=== PATIENT | female | born 1995 | race Caucasian/White ===

== ENCOUNTER 2017-06-26 08:22 | Outpatient (RCR) | payer OTHER, SELFPAY | END 2017-07-08 23:59 | LOC: NS 08:22 | PROVIDERS: Family Provider Family Medicine; PCP Family Medicine; Visit Provider Family Medicine | DX: E66.3 Overweight (principal); Z68.29 Body mass index [BMI] 29.0-29.9, adult; Z71.3 Dietary counseling and surveillance | CPT/HCPCS: 97802 ==

== ENCOUNTER 2017-07-10 12:25 | Outpatient (RCR) | payer OTHER, SELFPAY | END 2017-08-08 23:59 | LOC: NS 12:25 | PROVIDERS: Family Provider Family Medicine; PCP Family Medicine; Visit Provider Family Medicine | DX: E66.3 Overweight (principal); Z68.22 Body mass index [BMI] 22.0-22.9, adult; Z71.3 Dietary counseling and surveillance | CPT/HCPCS: 97803 ==

== ENCOUNTER 2017-08-14 11:01 | Outpatient (RCR) | payer OTHER, SELFPAY | END 2017-09-07 23:59 | LOC: NS 11:01 | PROVIDERS: Family Provider Family Medicine; PCP Family Medicine; Visit Provider Family Medicine | DX: E66.3 Overweight (principal); Z68.22 Body mass index [BMI] 22.0-22.9, adult; Z71.3 Dietary counseling and surveillance | CPT/HCPCS: 97803 ==

== ENCOUNTER 2017-09-11 11:28 | Outpatient (RCR) | payer OTHER, SELFPAY | END 2017-10-02 23:59 | LOC: NS 11:28 | PROVIDERS: Family Provider Family Medicine; PCP Family Medicine; Visit Provider Family Medicine | DX: E66.3 Overweight (principal); Z68.22 Body mass index [BMI] 22.0-22.9, adult; Z71.3 Dietary counseling and surveillance | CPT/HCPCS: 97803 ==

== ENCOUNTER 2017-12-16 08:30 | Outpatient (RCR) | payer OTHER, SELFPAY ==
--- NOTE | 2017-11-17 11:41 | HP.SP.AD ---
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 Right Hearing Abillity: Normal Left Hearing Abillity: Normal Visual Assistive Devices: Glasses Patients Living Arrangements: With Family Patient Allergies - Allergies Allergies latex Allergy (Verified 12/30/16 23:05) Hives lorazepam [From Ativan] Allergy (Verified 12/30/16 23:05) Itching HALLUCINATE Sulfa (Sulfonamide Antibiotics) Allergy (Verified 12/30/16 23:05) Hives melatonin Adverse Reaction (Verified 12/30/16 23:05) Other HYPERACTIVITY Subjective Cog/Ling/Com - Subjective Cognitive/Linguistic/Communication: Patient reported that since her injury ( a heavy shelf fell from above her onto her head as she leaned over) Objective Cog/Ling/Com - Test Administered Jyshfnlsl-Jmmivurkia-Ceqcfifzthexr Assessment Administered: Yes Dfmaprixh-Bphokwylun-Nhdkjypvnfnnn Assessment: Cognitive Linguistic skills were evaluated using patient/family interview, skilled observation and informal evaluation through tasks completed by the patient. - Orientation Orientation: Person, Birthdate, Medical Diagnosis - Answer Yes/No Questions Complex: WNL - Conversational Tasks Conversational Tasks: WNL Comments: The patient reported that she will have words that she is unable to say and that she describes them to move further into converation. - Recall Comments: Saskia reported that she is forgetting daily tasks such as putting away objects and has no recall of putting it away. She also reported that while at work she was trained on how to do a new task then was unable to complete the task. 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 She has had to call back to confirm an appointment becuase she did not write the details into her calendar. - Cognitive Linguistic Supervision/Saftey Awareness of deficits: WNL Cognitive Linguistic Comments - Comments Environment Saskia reports being overwhelmed by loud music or too many people in the same area. She noted that she has difficulty sustaining attention to task when music is present. This is affecting her work as she has to restart tasks. Plan - Plan Plan: Speech therapy is warranted for cognitive deficits which are impacting her daily function including but not limited recalling medical appointments or nformation for medical appointments. - Recommendations Treatment Warranted: Yes - Frequency Frequency: 1x/Week Duration: 6 Weeks - Prognosis Prognosis: Good - Goals that are Established: Determination:: Goals will be added/modified as deemed necessary and appropriate. Therapy will be discontinued when results of re-evaluation indicate therapy is no longer needed or lack of progress has been documented. - Goal #1-5 Goal #1: Further assessment for recall deficits with goals added at that time. Goal #2: Executive function evaluation with goals added at that time. Education - Patient Instruction Patient Education: Diagnosis, Goals Person Taught: Patient Teaching Method: Discussion Response to teaching: Verbalize understanding
--- NOTE | 2018-03-30 12:57 | HP.SP.DC_ITS ---
ST Discharge Summary - Discharged: Discharge: Saskia Grimaldo is discharged from [facility] as of March 30, 2018 due to lack of further scheduled visits. She was evaluated on 11/17/17 and attended a total of 3 sessions focusing on completing cognitive testing. She took one month off for traveling and no further visits were completed. A copy of this discharge summary will be sent to her referring physician.
== END 2017-12-16 19:00 | disposition home or self-care (01) ==
LOC: SP 08:30
PROVIDERS: Family Provider Family Medicine; PCP Family Medicine; Visit Provider Nurse Practitioner Acute Care
DX: R41.3 Other amnesia (principal); R41.0 Disorientation, unspecified; S06.0X9D Concussion with loss of consciousness of unspecified duration, subsequent encounter
CPT/HCPCS: 92507; 92523

== ENCOUNTER → 2018-11-05 08:57 | Outpatient (CLI) | payer OTHER, SELFPAY ==
[2018-10-06 09:43] VITALS: BMI 26.9
--- NOTE | 2018-11-05 09:01 | BI_ITS ---
MAMMOGRAPHY - BILATERAL DIAGNOSTIC REASON FOR EXAM: Female, 23 years old. PERTINENT HISTORY: Non-contributory. TECHNIQUE: Digital examination. Mediolateral oblique (MLO) and craniocaudad (CC) views of both breasts were obtained. CAD: COMPARISON: August 14, 2016 FINDINGS: Breast Composition: Scattered fibroglandular tissue bilaterally There are no dominant masses or suspicious calcifications. Skin thickening or nipple retraction. There are benign looking lymph nodes seen in the left axilla. No other significant abnormalities are identified. BI/DIAG MAMM W/CAD, BILAT IMPRESSION: Stable bilateral diagnostic mammogram. ASSESSMENT CATEGORY: BIRADS-1 unchanged since the last study of August 14, 2016 FOLLOW UP RECOMMENDATION: Approximately 10% of breast cancers are not detected by mammography. A normal mammogram should not delay biopsy of a clinically suspicious abnormality. Electronically Signed: Екатерина Hester, at 15:25 EDT Tel , Service support ,
== END ==
PROVIDERS: Family Provider Family Medicine; PCP Family Medicine; Referring Provider Surgery; Visit Provider Surgery
DX: N63.10 Unspecified lump in the right breast, unspecified quadrant (principal); N63.20 Unspecified lump in the left breast, unspecified quadrant; N64.4 Mastodynia; N60.12 Diffuse cystic mastopathy of left breast; N60.11 Diffuse cystic mastopathy of right breast; G90.59 Complex regional pain syndrome I of other specified site; F40.298 Other specified phobia; Z86.14 Personal history of Methicillin resistant Staphylococcus aureus infection; Z80.3 Family history of malignant neoplasm of breast
CPT/HCPCS: 77062; 77066; G0279

== ENCOUNTER 2019-09-24 16:05 | Emergency (ER) | payer OTHER, MEDICAID, SELFPAY ==
[2018-10-06 09:43] VITALS: BMI 26.9
[2019-09-24 16:06] VITALS: BP 122/67; PULSE 76; RESP 17; TEMP 36.5; O2SAT 96; BMI 33.3
--- NOTE | 2019-09-24 16:38 | CT_ITS ---
STUDY: CT ABDOMEN AND PELVIS WITHOUT CONTRAST REASON FOR EXAM: Female, 23 years old. Right SIDE ABD PAIN X 3 DAYS RADIATION DOSAGE (If Supplied By Facility): CTDIvol = ( 9.98 ) mGy, DLP = ( 448.64 ) mGycm TECHNIQUE: Transaxial images were obtained from the dome of the diaphragm to the symphysis pubis without oral contrast, and without intravenous contrast. Sagittal and coronal images were reconstructed. Individualized dose optimization techniques were used for this CT. COMPARISON: 09/16/2010. FINDINGS: The visualized lung bases are unremarkable. The visualized portions of the heart are within normal limits. Normal liver. Normal gallbladder and extrahepatic biliary system. Normal spleen. Normal pancreas. Normal bilateral adrenal glands. There are obstructive changes of the right kidney. Evidence for edema. Mild hydronephrosis. Minimal hydroureter. Findings are related to a 4 mm distal right ureteral calculus just proximal to the UVJ and seen on axial image 134. Normal left kidney. Evaluation of the GI tract is limited by the absence of oral contrast. Normal visualized stomach. Normal small intestine. Normal colon. The appendix is visualized and appears normal. Normal abdominal aorta. Normal inferior vena cava. Normal retroperitoneum. Normal urinary bladder. Normal visualized uterus. Normal abdominal wall. Normal osseous structures. CT/Abdomen/Pelvis without Cont IMPRESSION: Obstructive changes of the right kidney, collecting system and ureter from a 4 mm distal right ureteral calculus. Electronically Signed: Da Valencia MD at 17:52 EDT , Service support ,
[2019-09-24] MEDS: Ondansetron 4 MG/2 ML Vial IV (17:03)
[2019-09-24] MEDS: Morphine 4 MG/ML Syringe IV (17:03)
[2019-09-24] MEDS: 0.9% Normal Saline 1,000 ML 1000 ML IV (17:03)
[2019-09-24 17:06] LABS: Bacteria 0 SEEN /hpf (None Seen); Mucous, Urine 0 SEEN /hpf (<or=2+); White Blood Cells 0 SEEN /hpf (0-5)
[2019-09-24 17:07] LABS: Absolute Lymphocyte Count 2.23 X10^3/uL (0.83-4.51); Absolute Neutrophil Count 7.2 X10^3/uL (2.0-7.7); Basophil# 0.02 X10^3/uL; Basophil% 0.2 % (0-1); Eosinophil# 0.08 X10^3/uL; Eosinophils% 0.8 % (0-5); Hematocrit 39.2 % (37-47); Hemoglobin 12.6 g/dL (12.0-15.0); Lymphocyte # 2.23 X10^3/ul (4.0); Lymphocyte % 21.4 % (19-41); Mean Corp Hgb Conc 32.1 g/dL (32-36); Mean Corpuscular Hgb 28.8 pg (27.0-32.0); Mean Corpuscular Volume 89.7 fL (81-99); Mean Platelet Vol. 11.5 fl (6.2-12.0); Monocyte# 0.86 X10^3/uL; Monocyte% 8.2 % (0-10); NRBC Flagged by Analyzer 0 % (0-5); Neutrophil # 7.22 X10^3/uL (2.7-7.7); Neutrophil % 69.1 % (47-70); Platelet Count 181 K/mm3 (150-450); RBC Distribution Width CV 12.1 % (11.6-14.6); Red Blood Count 4.37 M/mm3 (4.2-5.4); White Blood Count 10.4 K/mm3 (4.4-11.0)
[2019-09-24 17:08] LABS: Color, Urine Yellow (Yellow); Glucose, Dipstick Normal (Normal); Ketone-Dipstick 5 mg/dl (Negative); Leukocyte Esterase-Dipstick Negative /ul (Negative); Nitrite-Dipstick Negative (Negative); Occult Blood-Urine 10 /ul (Negative); Protein-Dipstick 15 mg/dl (Negative); Specific Gravity, Urine 1.025 (1.002-1.030); Urine Bilirubin Dipstick Negative (Negative); Urine Clarity Clear (Clear); Urine Urobilinogen Normal (Normal)
[2019-09-24 17:14] LABS: Internal QC Validated? YES +Cl - CLEAR BKGD; Pregnancy, Serum, hCG Quali. NEGATIVE Negative
[2019-09-24 17:16] LABS: Red Blood Cells-Urine 0-5 SEEN /hpf (0-5); Squamous Epithelial Cells - UA 0-5 SEEN /hpf (5-10)
[2019-09-24 17:21] LABS: AST(SGOT) 18 U/L (15-37); Alanine Aminotransfer ALT/SGPT 20 U/L (13-56); Alkaline Phosphatase 77 U/L (45-117); Anion Gap 7 (5-15); BUN 24 mg/dL (7-18); BUN/Creat Ratio 14.9 RATIO (10-20); Bilirubin, Direct 0.15 mg/dL (0.00-0.30); Calcium,Total 8.8 mg/dL (8.5-10.1); Chloride 110 mmol/L (98-107); Creatinine, Serum 1.61 mg/dL (0.55-1.02); EST Glomerular Filtration Rate 41 mL/min (>60); Est Glom Filt Rate - Afr Amer 50 mL/min (>60); Estimated Creatinine Clearance 58.94 ml/min; Globulin 3.2 g/dL (2.2-4.2); Glucose 89 mg/dL (74-106); Lipase 80 U/L (73-393); Potassium 3.6 mmol/L (3.5-5.1); Protein, Total 7.2 g/dL (6.4-8.2); Sodium Level 142 mmol/L (136-145)
--- NOTE | 2019-09-24 17:55 | ED.DCSUM_ITS ---
- ER Visit Summary Date of Service: 09/24/19 Chief Complaint: Flank and abdominal pain History of Present Illness: The patient is a [address] Clement. She reports that she has right flank and back pain that began 2 days ago. It was a sudden onset of pain she described as stabbing. Is 10 of 10 at worst an 8 out of 10 currently. Is worsened by movement relieved by remaining still. She is been nausea and vomit 6 times. No blood in her emesis. She also reports she said tips of the diarrhea. No blood in her stools or black tarry stools. She denies dysuria, but she feels the urge to urinate more frequently than usual. She denies hematuria. She is on Depakote and her last shot was a few days ago. Physical Examination: Vitals: Stable. Afebrile. General: Well-nourished and well-developed. Head: Normocephalic atraumatic. Neck: Supple, no lymphadenopathy. No JVD. Nontender. Cardiovascular: Regular rate and rhythm. No murmurs. Respiratory: No respiratory distress. Clear to auscultation bilaterally. Abdominal: Soft, mild right lower quadrant tenderness palpation, nondistended, normal bowel sounds. No guarding, rebound, or peritoneal signs. Back: Nontender. No CVA tenderness. Extremities: Nontender, no edema. Skin: Normal color, no rash. Neurologic: Alert and oriented ?3. Cranial nerves II through XII are intact. Normal strength and sensation. Psych: Normal affect. Test Results: CBC is normal. Chem-7 shows a chloride 110, BUN 24, creatinine 1.61. LFTs are normal. Lipase is normal. UA is normal. test is negative. Clinical Impression(s) from Imaging Studies Abdomen/Pelvis CT 09/24/19 16:38 IMPRESSION: Obstructive changes of the right kidney, collecting system and ureter from a 4 mm distal right ureteral calculus. Electronically Signed: Da Valencia MD at 17:52 EDT , Service support , Emergency Department Course and Treatment: Patient was given a liter normal saline. She was given morphine and Zofran IV. She is resting comfortably. Treatment Plan: Patient will be discharged on Percocet, Zofran, and naproxen. Instructed to follow-up with Dr. Caldera in 1 week if not improving. Return to the emergency department for any worsening symptoms. Disposition: To home in improved and stable condition. Impression: 1. Right ureterolithiasis. This note was generated with [employer] dictation software. It may contain incorrect words, spelling, and punctuation that were not noted in review of the chart prior to signing ED Disposition - Plan for ED Patient: Disposition: Home or Assisted Living Instructions: ED Renal Stone w Colic Prescriptions: Naproxen [Naprosyn] 500 mg PO BID #14 tab Prescription Printed Oxycodone HCl/Acetaminophen [Percocet 5/325] 1 tab PO Q6H PRN PRN 3 Days #12 tab PRN Reason: Pain Prescription Printed Ondansetron [Zofran Odt] 4 mg PO Q8H PRN PRN #10 tab PRN Reason: Nausea Prescription Printed Referrals: Marlo Caldera MD [STAFF PHYSICIAN] - 1 Week if not improving
[2019-09-24 18:38] VITALS: RESP 16
[2019-09-24 19:41] VITALS: PULSE 87; RESP 14; O2SAT 99
== END 2019-09-24 19:42 | disposition home or self-care (01) ==
LOC: ED 17:59
PROVIDERS: Emergency Provider Emergency Medicine; PCP Family Medicine
DX: N20.1 Calculus of ureter (principal); M79.7 Fibromyalgia
CPT/HCPCS: 74176; 80048; 80076; 81001; 83690; 84703; 85025; 96361; 96374; 96375; 99283; J7030; A4216; J2405

== ENCOUNTER 2019-09-30 14:04 | Day surgery (SDC) | payer OTHER, MEDICAID, SELFPAY ==
[2019-09-30 14:29] VITALS: BP 120/77; PULSE 71; RESP 18; TEMP 36.7; O2SAT 100; BMI 33.8
[2019-09-30 14:29] LABS: Internal QC Validated? YES +Cl - CLEAR BKGD; Pregnancy, Urine Negative Negative
--- NOTE | 2019-09-30 15:46 | PCM.HP.STD ---
History of Present Illness Date of Admission: 09/30/19 Chief Complaint: Right ureteral calculi, distal The patient is a 23 year old female with the 4 mm fragment in the distal right ureter has failed to pass it on her own we offered conservative measures to see she could pass a stone but she called back the office and wants to proceed with laser or basket extraction she understands the need a stent afterwards. 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) Unspecified open wound of left breast, sequela (Chronic) Unspecified open wound of right breast, sequela (Chronic) Breast mass, right (Chronic) Breast mass, left (Chronic) 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) History of MRSA infection (Chronic) Smoker (Chronic) Family history of breast cancer (Chronic) History of bilateral breast reduction surgery (Chronic) Chronic breast pain (Chronic) bilateral breasts Medical History: Medical History (Last Updated 05/21/18 @ 10:59 by Aisha Bishop) Acute recurrent tonsillitis, unspecified J03.91 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 Breast mass, left N63.20 PAINFUL MASS LEFT BREAST (INFERIOR TO NIPPLE) Diffuse cystic mastopathy N60.19 Frequent headaches R51 History of MRSA infection Z86.14 MRSA WOUND INFECTION OF HER BREAST History of chicken pox Z86.19 History of pneumonia Z87.01 AFTER THE BREAST REDUCTION IN 04/17 IBS (irritable bowel syndrome) K58.9 MTHFR (methylene THF reductase) deficiency and 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, E72.11 Mass of right breast N63.10 PAINFUL MASSES RIGHT BREAST (LATERAL AND MEDIAL PERIAREOLAR AREA) Moderate malnutrition E44.0 MODERATE MALNUTRITION UNSPECIFIED Sinus problem J34.9 Allergies latex Allergy (Verified 09/30/19 14:27) Hives lorazepam [From Ativan] Allergy (Verified 09/30/19 14:27) Itching HALLUCINATE Sulfa (Sulfonamide Antibiotics) Allergy (Verified 09/30/19 14:27) Hives Home Medications: Ambulatory Orders Medication Instructions Recorded clonazepam 1 mg tablet 1 mg PO TID 10/06/18 erenumab-aooe 70 mg/mL 140 mg SC QMONTH 10/06/18 subcutaneous auto-injector Naproxen [Naprosyn] 500 mg PO BID #14 tab 09/24/19 Ondansetron [Zofran Odt] 4 mg PO Q8H PRN PRN #10 tab 09/24/19 Oxycodone HCl/Acetaminophen 1 ea PO Q6H PRN PRN 09/29/19 [Oxycodone-Acetaminophen 5-325] Surgical History: Surgical History (Last Updated 05/21/18 @ 11:07 by Aisha Bishop) History of bilateral breast reduction surgery Z98.890 BILATERAL BREAST REDUCTION MAMMAPLASTY 04/17 History of excision of lesion Z98.890, Z87.2 EXCISION PAINFUL THICKENED SCAR CONTOUR DEFORMITY WOUND INFECTION BILATERAL BREAST WITH COMPLEX CLOSURE (44 CM) 07/25/10 History of excision of mass Z98.890 EXCISION PAINFUL MASS RIGHT LATERAL BREAST AND EXCISION PAINFUL MASS MEDIAL PERIAREOLAR AREA RIGHT BREAST 06/06/14 History of tonsillectomy Z90.89 Surgical History: no surgical history Smoking Status: Never smoker Tobacco Use: Non-smoker Review of Systems Constitutional: Denies: Chills, Fever, Weight Change HEENT: Denies: Head Aches, Sinus Congestion, Sinus Drainage Cardiovascular: Denies: Chest Pain, Palpitations Respiratory: Denies: Cough, Shortness of breath at rest, Sputum production Gastrointestinal: Denies: Abdominal Pain, Nausea, Vomiting Genitourinary: Denies: Dysuria Musculoskeletal: Denies: Joint Pain, Joint Tenderness Skin: Denies: Rash, Wounds Neurological: Denies: Numbness, Tingling, Focal weakness Psychiatric: Denies: Anxiety, Depression, Homicidal Ideations, Suicidal Ideations Hematologic/ Lymphatic: Denies: Easy Bruising, Easy Bleeding VTE Information - Inpt Only VTE Present on Admission: No VTE Mechan Device Prophylaxis: SCD's - Physical Exam Vitals/I&O's: Vital Signs Temp Pulse Resp BP Pulse Ox 98.1 F 71 18 120/77 100 09/30/19 14:29 09/30/19 14:29 09/30/19 14:29 09/30/19 14:29 09/30/19 14:29 Oxygen Delivery Method Room Air Weight: 70.9 kg Body Mass Index (BMI) 33.8 General: Alert, Oriented x3, Cooperative HEENT: Atraumatic, PERRLA, EOMI, Normocephalic Neck: Supple, No JVD, Negative Carotid Bruits Lungs: Clear to auscultation, Normal air movement Cardiovascular: Regular rate, No murmurs Abdomen: Bowel Sounds Present, Soft, Non Tender Extremities: No edema, Capillary Refill Less than 3 Seconds Skin: No rashes, No breakdown Musculoskeletal: No Tenderness to Palpation of Joints or Extremities Neurological: Cranial nerves II-XII grossly intact Psych/Mental Status: Normal Affect, Appropriate Microbiology Past 72 Hours 09/29/19 11:10 Mucosa - Nasopharyngeal Coronavirus COVID-19 PCR - Final Laboratory Results 09/30/19 14:21: Urine Test Negative Assessment/Plan Plan to proceed with right ureteroscopy basket extraction and stent placement for obstructing stone in the distal right ureter causing significant pain and discomfort.
[2019-09-30] MEDS: Cefazolin 2 GM in 0.9% Normal Saline 100 ML IV (15:48)
--- NOTE | 2019-09-30 15:49 | DCINST_ITS ---
Discharge Diet: Light diet - advance as tolerated Discharge Activity: Return to Normal Activity, May not drive while taking narcotic pain medications. Allergies/Adverse Reactions: Allergies latex Allergy (Verified 09/30/19 14:27) Hives lorazepam [From Ativan] Allergy (Verified 09/30/19 14:27) Itching HALLUCINATE Sulfa (Sulfonamide Antibiotics) Allergy (Verified 09/30/19 14:27) Hives Medications to take at Discharge clonazepam 1 mg tablet 1 mg PO TID 10/06/18 erenumab-aooe 70 mg/mL subcutaneous auto-injector 140 mg SC QMONTH 10/06/18 Naproxen [Naprosyn] 500 mg PO BID #14 tab 09/24/19 Ondansetron [Zofran Odt] 4 mg PO Q8H PRN PRN #10 tab 09/24/19 Oxycodone HCl/Acetaminophen [Oxycodone-Acetaminophen 5-325] 1 ea PO Q6H PRN PRN 09/29/19 Cephalexin [Keflex] 500 mg PO TID #9 cap 09/30/19 Ondansetron [Zofran Odt] 4 mg PO Q8H PRN PRN #6 tab 09/30/19 Oxycodone HCl/Acetaminophen [Percocet 5/325] 1 tab PO Q4H PRN PRN 5 Days #10 tab 09/30/19 The following prescriptions were given: Cephalexin [Keflex] 500 mg PO TID #9 cap Prescription Printed Oxycodone HCl/Acetaminophen [Percocet 5/325] 1 tab PO Q4H PRN PRN 5 Days #10 tab PRN Reason: Pain Prescription Printed Ondansetron [Zofran Odt] 4 mg PO Q8H PRN PRN #6 tab PRN Reason: Nausea Prescription Printed Primary Care Physician: Angelo Clement DO [Primary Care Provider] - Test Results: Test results from this visit will be discussed in further detail at your follow- up appointment, if applicable. Please Follow Up With: Marlo Caldera MD When: please call to make an appointment.
--- NOTE | 2019-09-30 16:15 | PCM.OPRPT ---
Report of Operation Date of Procedure: 09/30/19 Pre-Operative Diagnosis: Right colic and right ureteral calculi distal Post-Operative Diagnosis: Same Surgery/Procedure Performed:: Cystoscopy, balloon dilation of the right ureter, retrograde pyelogram, ureteroscopy,. Stent placement right side Description of Surgical Findings:: 23-year-old female presented to the office with severe right flank pain from a small 4 mm stone in the distal right ureter, at that point I advised continued observations is very likely she is going to pass a stone she went home and then called back and pain and desire to have intervention to relieve of pain. So we put on the schedule for right ureteroscopy and extraction of stone, I saw her in the preoperative area and she was still complaining of right flank pain and denied seeing the stone pass. 23-year-old female taken back to the operating room at the smooth induction of anesthesia she was placed supine on the table then in dorsolithotomy position, the urethrovaginal area prepped and draped in usual sterile fashion I went into the bladder with a 21 Nauruan rigid cystourethroscope, cannulated the right ureteral orifice initially I thought I could feel the wire hit something that could feel like the stone but on fluoroscopy could not see anything we then balloon dilated the distal ureter with a 12 Nauruan balloon dilator, and then left the wire in place and next a wire went in with a SlimLine rigid ureteroscope the distal ureter was somewhat tight but is able to get through without any problems and then I got into the distal ureter and no stone was seen there was a small mucosal flap that had developed when the wires put in I corrected the course of this but pulled the wire out and then went over the flap and then put the wire up over the flap of mucosa. I then performed a retrograde pyelogram there is no extravasation of contrast so was not a injury to the ureter just a small mucosal flap. Once that was identified expected ureter again no stone was seen she must the past it. I have reviewed the retrograde pyelogram again could see contrast going up all the way to the kidney and then I put a stent over the wire the stent coiled in the kidney and bladder good position but the string on it for extraction and will see her next week next for removal in the office. Type of Anesthesia:: General Drains: stent right side - Admit VTE Documentation VTE Present on Admission: No VTE Mechan Device Prophylaxis: SCD's
[2019-09-30 16:23] VITALS: BP 102/63; BP 120/77; PULSE 62; RESP 16; TEMP 36.7; O2SAT 96
[2019-09-30 16:30] VITALS: BP 107/71; BP 120/77; PULSE 79; RESP 16; O2SAT 96
[2019-09-30 16:45] VITALS: BP 117/80; BP 120/77; PULSE 77; RESP 16; TEMP 36.9; O2SAT 98
[2019-09-30 17:01] VITALS: BP 120/77
== END 2019-09-30 17:18 | disposition home or self-care (01) ==
LOC: SDC 14:06 → AC 14:06
PROVIDERS: Anesthesiology; PCP Family Medicine; Referring Provider Urology; Visit Provider Urology
PROC: 0TJ98ZZ Inspection of Ureter, Via Natural or Artificial Opening Endoscopic (ICD-10-PCS; CPT 52352; principal; 2019-09-30 15:55)
DX: N20.1 Calculus of ureter (principal); Z79.1 Long term (current) use of non-steroidal anti-inflammatories (NSAID); Z80.3 Family history of malignant neoplasm of breast; Z86.14 Personal history of Methicillin resistant Staphylococcus aureus infection; Z87.891 Personal history of nicotine dependence; Z88.2 Allergy status to sulfonamides; Z91.040 Latex allergy status; Z87.440 Personal history of urinary (tract) infections; F43.12 Post-traumatic stress disorder, chronic; M79.7 Fibromyalgia; E72.12 Methylenetetrahydrofolate reductase deficiency; Z11.59 Encounter for screening for other viral diseases
CPT/HCPCS: 52332; 52344; 76000; 81025; 87635; G2023; J7120; C1769; C2617; J2405; U0004

== ENCOUNTER → 2019-11-21 16:01 | Outpatient (CLI) | payer MEDICAID, SELFPAY ==
--- NOTE | 2019-11-21 16:06 | RAD_ITS ---
STUDY: X-RAY - ABDOMEN/PELVIS REASON FOR EXAM: Female, 24 years old. RIGHT SIDE KIDNEY STONE CHECK UP, PT WENT IN FOR SURGERY, AND DR COULD NOT FIND STONE TECHNIQUE: Single AP view of the abdomen / pelvis. COMPARISON: CT scan of 09/24/2019. FINDINGS: Normal visualized lung bases. Currently, no definite renal or ureteral stones are seen. There is an unremarkable bowel gas pattern. There is no demonstrated free abdominal air. The visualized liver, spleen and kidneys are grossly normal in size and morphology. Normal soft tissue structures. Normal visualized osseous structures. RAD/Abdomen Single View IMPRESSION: Normal x-ray examination of the abdomen and pelvis. No definite renal or ureteral stones. Electronically Signed: Da Valencia MD at 17:15 EDT , Service support ,
== END ==
PROVIDERS: PCP Family Medicine; Referring Provider Urology; Visit Provider Urology
DX: N20.0 Calculus of kidney (principal)
CPT/HCPCS: 74018

== ENCOUNTER 2019-12-20 15:43 | Outpatient (RCR) | payer MEDICAID, SELFPAY | END 2020-01-09 23:59 | LOC: NS 15:43 | PROVIDERS: PCP Family Medicine; Visit Provider Family Medicine | DX: Z71.3 Dietary counseling and surveillance (principal); E66.9 Obesity, unspecified; Z68.32 Body mass index [BMI] 32.0-32.9, adult | CPT/HCPCS: 97802 ==

== ENCOUNTER → 2020-01-26 14:31 | Outpatient (CLI) | payer MEDICAID, SELFPAY ==
--- NOTE | 2020-01-26 14:34 | CT_ITS ---
STUDY: CT ABDOMEN AND PELVIS WITHOUT CONTRAST REASON FOR EXAM: Female, 24 years old. BILAT FLANK PAIN X 1 MONTH, HX RT SIDE [place] RADIATION DOSAGE (If Supplied By Facility): CTDIvol = ( 12.44 ) mGy, DLP = ( 541.79 ) mGycm TECHNIQUE: Transaxial images were obtained from the dome of the diaphragm to the symphysis pubis without oral contrast, and without intravenous contrast. Sagittal and coronal images were reconstructed. Individualized dose optimization techniques were used for this CT. COMPARISON: Comparison is made with prior examination dated 09/24/2019. FINDINGS: The visualized lung bases are unremarkable. The visualized portions of the heart are within normal limits. Normal liver. Normal gallbladder and extrahepatic biliary system. Normal spleen. Normal pancreas. Normal bilateral adrenal glands. Findings suggestive of a medullary sponge kidneys. No obstructive uropathy is seen at this time. The previously seen calculus at the right uterovesical junction is not seen at this time. Normal visualized stomach. Normal small intestine. Normal colon. The appendix is visualized and appears normal. Normal abdominal aorta. Normal inferior vena cava. Normal retroperitoneum. Normal urinary bladder. Small follicles are seen in both ovaries. Normal abdominal wall. Normal osseous structures. CT/Abdomen/Pelvis without Cont IMPRESSION: Findings suggestive of medullary sponge kidneys. Electronically Signed: Prasad Daly, at 14:59 EDT , Service support ,
== END ==
PROVIDERS: PCP Family Medicine; Referring Provider Urology; Visit Provider Urology
DX: R10.9 Unspecified abdominal pain (principal); N20.0 Calculus of kidney
CPT/HCPCS: 74176

== ENCOUNTER 2020-02-27 16:52 | Outpatient (RCR) | payer MEDICAID, SELFPAY | END 2020-02-27 23:59 | disposition home or self-care (01) | LOC: NS 16:52 | PROVIDERS: PCP Family Medicine; Visit Provider Family Medicine | DX: Z71.3 Dietary counseling and surveillance (principal); E66.9 Obesity, unspecified; Z68.32 Body mass index [BMI] 32.0-32.9, adult | CPT/HCPCS: 97803 ==

== ENCOUNTER → 2020-04-25 08:59 | Outpatient (CLI) | payer MEDICAID, SELFPAY ==
[2020-03-14 08:41] VITALS: BMI 32.6
[2020-04-25 12:45] LABS: Absolute Lymphocyte Count 2.34 X10^3/uL (0.83-4.51); Absolute Neutrophil Count 6.7 X10^3/uL (2.0-7.7); Basophil# 0.04 X10^3/uL; Basophil% 0.4 % (0-1); Hemoglobin 13.7 g/dL (12.0-15.0); Lymphocyte # 2.34 X10^3/ul (4.0); Lymphocyte % 23.5 % (19-41); Mean Corp Hgb Conc 31.9 g/dL (32-36); Mean Corpuscular Hgb 28.8 pg (27.0-32.0); Mean Corpuscular Volume 90.3 fL (81-99); Mean Platelet Vol. 12.3 fl (6.2-12.0); Monocyte# 0.71 X10^3/uL; Monocyte% 7.1 % (0-10); NRBC Flagged by Analyzer 0 % (0-5); Neutrophil # 6.73 X10^3/uL (2.7-7.7); Neutrophil % 67.6 % (47-70); Platelet Count 221 K/mm3 (150-450); RBC Distribution Width CV 12.3 % (11.6-14.6); RBC Distribution Width SD 40.7 fl (35.1-43.9); Red Blood Count 4.76 M/mm3 (4.2-5.4)
[2020-04-25 12:55] LABS: D-Dimer Quantitative (DVT/PE) <= 0.27 FEU/ug/m (0.27-0.49)
[2020-04-25 13:20] LABS: ALB/GLOB Ratio 1.2 RATIO (0.9-2.4); AST(SGOT) 14 U/L (15-37); Alanine Aminotransfer ALT/SGPT 24 U/L (13-56); Albumin, Serum 3.9 g/dL (3.2-5.0); Alkaline Phosphatase 86 U/L (45-117); Anion Gap 8 (5-15); BUN 13 mg/dL (7-18); BUN/Creat Ratio 15.7 RATIO (10-20); Calcium,Total 8.8 mg/dL (8.5-10.1); Chloride 110 mmol/L (98-107); Creatinine, Serum 0.83 mg/dL (0.55-1.02); EST Glomerular Filtration Rate 88 mL/min (>60); Est Glom Filt Rate - Afr Amer 107 mL/min (>60); Globulin 3.3 g/dL (2.2-4.2); Glucose 89 mg/dL (74-106); Potassium 3.6 mmol/L (3.5-5.1); Protein, Total 7.2 g/dL (6.4-8.2); Sodium Level 142 mmol/L (136-145); Thyroid Stim Hormone (TSH) 1.01 uIU/mL (0.358-3.74)
== END ==
PROVIDERS: PCP Family Medicine; Visit Provider Family Medicine
DX: R06.00 Dyspnea, unspecified (principal); R60.9 Edema, unspecified
CPT/HCPCS: 36415; 80053; 84443; 85025; 85379

== ENCOUNTER → 2020-05-30 12:48 | Outpatient (CLI) | payer MEDICAID, SELFPAY ==
[2020-05-30 08:46] VITALS: BMI 32.4
== END ==
PROVIDERS: PCP Family Medicine; Referring Provider Obstetrics & Gynecology; Visit Provider Obstetrics & Gynecology
DX: R10.2 Pelvic and perineal pain (principal)
CPT/HCPCS: 87070; 87205

== ENCOUNTER → 2020-08-03 15:53 | Outpatient (CLI) | payer MEDICAID, SELFPAY ==
[2020-05-30 08:46] VITALS: BMI 32.4
--- NOTE | 2020-08-03 16:12 | CT_ITS ---
INDICATION: KIDNEY STONES EXAMINATION: CT Abdomen And Pelvis W/O Contrast Injection TECHNIQUE: Helically acquired images were obtained of the abdomen and pelvis without the use of IV contrast. A radiation dose optimization technique was used for this scan. Oral contrast: None. COMPARISON: 01/26/2020 FINDINGS: Evaluation of the solid organs and vascular structures is limited without intravenous contrast. Visualized lung bases: Unremarkable Liver: Unremarkable Gallbladder: Unremarkable Spleen: Unremarkable Pancreas: Unremarkable Adrenal Glands: Unremarkable Kidneys: Hyperdense renal pyramids bilaterally, non-specific. Tiny 1 mm nonobstructing stone in the left mid pole (image 69, series 601). GI Tract: Unremarkable Vasculature: Unremarkable Lymphadenopathy: None Peritoneum: No ascites. Bladder: Unremarkable Reproductive organs: IUD in place. Bones/Soft tissues: No suspicious osseous or soft tissue lesions CT/Abdomen/Pelvis without Cont IMPRESSION: Tiny 1 mm non-obstructing renal stone in the left mid pole. No hydronephrosis or ureteral stones. Non-specific bilateral hyperdense renal pyramids. Electronically Signed: Brock Prince MD at 16:56 EDT Tel , Service support ,
== END ==
PROVIDERS: PCP Family Medicine; Referring Provider Urology; Visit Provider Urology
DX: N20.0 Calculus of kidney (principal); M54.9 Dorsalgia, unspecified; R11.2 Nausea with vomiting, unspecified
CPT/HCPCS: 74176

== ENCOUNTER → 2020-11-29 12:39 | Outpatient (CLI) | payer MEDICAID, SELFPAY ==
[2020-11-29 11:09] VITALS: BMI 31.3
[2020-12-01 03:07] LABS: Chlamydia By Nucleic Acid AMP Negative (Negative)
[2020-12-01 08:33] LABS: Gonococcus By Nucleic Acid AMP Negative (Negative)
== END ==
PROVIDERS: PCP Family Medicine; Referring Provider Obstetrics & Gynecology; Visit Provider Obstetrics & Gynecology
DX: R10.2 Pelvic and perineal pain (principal); G89.29 Other chronic pain
CPT/HCPCS: 87070; 87205; 87491; 87591

== ENCOUNTER → 2020-12-04 12:20 | Outpatient (CLI) | payer MEDICAID, SELFPAY ==
[2020-11-29 11:09] VITALS: BMI 31.3
--- NOTE | 2020-12-04 12:27 | US_ITS ---
STUDY: ULTRASOUND OF THE FEMALE PELVIS - COMPLETE REASON FOR EXAM: Female, 25 years old. Pain with menstruation. Possible endometriosis. LMP: 11/20/2020. TECHNIQUE: Transabdominal and Transvaginal TECHNICAL QUALITY: Adequate. COMPARISON: None. FINDINGS: The uterus is anteverted and is in a midline position. The uterus measures 8.3 cm x 5 cm x 3.8 cm. Normal uterine cervix. The endometrium measures 9 mm in thickness, and is hyperechoic. There is no demonstrated endometrial mass. There is no demonstrated myometrial mass. I.U.D. - The patient does not have an I.U.D. The right ovary is visualized. The right ovary measures 2.8 cm x 2.6 cm x 2.6 cm. There is no right ovarian cyst or ovarian mass. There is no visualized right adnexal mass or complex lesion. There is normal arterial and normal venous vascularity. The left ovary is visualized. The left ovary measures 2.7 cm x 2.3 cm x 1.5 cm. There is no left ovarian cyst or ovarian mass. There is no visualized left adnexal mass or complex lesion. There is normal arterial and normal venous vascularity. There is minimal fluid in the cul-de-sac. The pre void volume of the bladder was 122 ml. US/Transvaginal Non- IMPRESSION: Minimal amount of free fluid in the cul-de-sac, otherwise normal examination. Electronically Signed: Prasad Daly MD at 15:34 EDT , Service support ,
--- NOTE | 2020-12-04 12:27 | US_ITS ---
STUDY: ULTRASOUND OF THE FEMALE PELVIS - COMPLETE REASON FOR EXAM: Female, 25 years old. Pain with menstruation. Possible endometriosis. LMP: 11/20/2020. TECHNIQUE: Transabdominal and Transvaginal TECHNICAL QUALITY: Adequate. COMPARISON: None. FINDINGS: The uterus is anteverted and is in a midline position. The uterus measures 8.3 cm x 5 cm x 3.8 cm. Normal uterine cervix. The endometrium measures 9 mm in thickness, and is hyperechoic. There is no demonstrated endometrial mass. There is no demonstrated myometrial mass. I.U.D. - The patient does not have an I.U.D. The right ovary is visualized. The right ovary measures 2.8 cm x 2.6 cm x 2.6 cm. There is no right ovarian cyst or ovarian mass. There is no visualized right adnexal mass or complex lesion. There is normal arterial and normal venous vascularity. The left ovary is visualized. The left ovary measures 2.7 cm x 2.3 cm x 1.5 cm. There is no left ovarian cyst or ovarian mass. There is no visualized left adnexal mass or complex lesion. There is normal arterial and normal venous vascularity. There is minimal fluid in the cul-de-sac. The pre void volume of the bladder was 122 ml. US/Pelvic (Non ) IMPRESSION: Minimal amount of free fluid in the cul-de-sac, otherwise normal examination. Electronically Signed: Prasad Daly MD at 15:34 EDT , Service support ,
== END ==
PROVIDERS: PCP Family Medicine; Referring Provider Obstetrics & Gynecology; Visit Provider Obstetrics & Gynecology
DX: R10.2 Pelvic and perineal pain (principal)
CPT/HCPCS: 76830; 76856

== ENCOUNTER → 2020-12-17 12:51 | Outpatient (CLI) | payer MEDICAID, SELFPAY ==
[2020-11-29 11:09] VITALS: BMI 31.3
[2020-12-17 09:42] LABS: Hematocrit 44.9 % (37-47); Hemoglobin 14.5 g/dL (12.0-15.0); Mean Corp Hgb Conc 32.3 g/dL (32-36); Mean Corpuscular Volume 89.8 fL (81-99); Mean Platelet Vol. 11.3 fl (6.2-12.0); Platelet Count 226 K/mm3 (150-450); RBC Distribution Width CV 12.4 % (11.6-14.6); RBC Distribution Width SD 40.7 fl (35.1-43.9); White Blood Count 8.1 K/mm3 (4.4-11.0)
[2020-12-17 09:55] LABS: Prothrombin Time (Protime)PT. 12.5 SECONDS (11.7-14.9)
[2020-12-17 09:56] LABS: Partial Thromboplast Time 26.6 Seconds (24.1-36.2)
[2020-12-17 10:10] LABS: AST(SGOT) 21 U/L (15-37); Alanine Aminotransfer ALT/SGPT 21 U/L (13-56); Alkaline Phosphatase 87 U/L (45-117); Bilirubin, Direct 0.12 mg/dL (0.00-0.30); Globulin 3.6 g/dL (2.2-4.2); Protein, Total 7.6 g/dL (6.4-8.2)
== END ==
PROVIDERS: Anesthesiology; PCP Family Medicine; Referring Provider Obstetrics & Gynecology; Visit Provider Obstetrics & Gynecology
DX: Z01.818 Encounter for other preprocedural examination (principal); Z20.828 Contact with and (suspected) exposure to other viral communicable diseases
CPT/HCPCS: 36415; 80076; 85027; 85610; 85730; 86850; 86900; 86901; 87426; C9803

== ENCOUNTER 2021-01-22 08:49 | Day surgery (SDC) | payer MEDICAID, SELFPAY ==
[2021-01-18 13:35] LABS: Hematocrit 42.8 % (37-47); Hemoglobin 13.8 g/dL (12.0-15.0); Mean Corp Hgb Conc 32.2 g/dL (32-36); Mean Corpuscular Hgb 28.9 pg (27.0-32.0); Mean Corpuscular Volume 89.5 fL (81-99); Mean Platelet Vol. 11.5 fl (6.2-12.0); Platelet Count 227 K/mm3 (150-450); RBC Distribution Width CV 11.9 % (11.6-14.6); RBC Distribution Width SD 38.9 fl (35.1-43.9); Red Blood Count 4.78 M/mm3 (4.2-5.4); White Blood Count 10.7 K/mm3 (4.4-11.0)
[2021-01-22] VITALS (8 sets, daily range): BP systolic 93–122; BP diastolic 45–76; PULSE 55–84; RESP 16; TEMP 36.2–36.8; O2SAT 93–100; BMI 32.3
[2021-01-22 09:29] LABS: Internal QC Validated? YES +Cl - CLEAR BKGD; Pregnancy, Urine Negative Negative
[2021-01-22] MEDS: Lactated Ringers 1,000 ML 100 ML IV ×2 (10:06→12:46)
--- NOTE | 2021-01-22 11:05 | HP.PCM.OB_ITS ---
HPI - General HPI Narrative WILFREDO VELEZ, is a 25 F who presents for diagnostic laparoscopy, possible fulguration of endometriosis PFSH PFS Medical History (Updated 01/17/21 @ 09:08 by Eladia Byers) Acute recurrent tonsillitis, unspecified Alcohol use Anemia Anxiety Bilateral macrostomia Borderline personality disorder Breast mass, left Closed TBI (traumatic brain injury) Depression Diffuse cystic mastopathy Easy bruising Frequent headaches Gastric reflux History of chicken pox History of MRSA infection History of pneumonia History of steroid therapy IBS (irritable bowel syndrome) Injury of back Injury of head and neck Kidney stones Marijuana use Mass of right breast Migraine headache Moderate malnutrition MTHFR (methylene THF reductase) deficiency and homocystinuria Restless legs Sinus problem Wears glasses Home Medications multivitamin 1 tab PO DAILY 03/07/20 [History Last Taken Unknown] Allergy/AdvReac Type Severity Reaction Status Date / Time latex Allergy Hives/throat Verified 01/22/21 09:29 swelling lorazepam [From Ativan] Allergy Itching/thong Verified 01/22/21 09:29 lucinations Sulfa (Sulfonamide Allergy Hives/breathing Verified 01/22/21 09:29 Antibiotics) difficulty Family History Mother Anemia History of blood clots History of blood transfusion Hormone disorder Arthritis Father Asthma Aunt Breast cancer Cervical cancer Ovarian cancer Grandfather Bleeding disorder History of angina Melanoma Diabetes Heart disease Hypertension High cholesterol CVA (cerebral vascular accident) Cancer Grandmother Arthritis Diabetes Osteoporosis Thyroid disorder Surgical History History of bilateral breast reduction surgery History of excision of lesion History of excision of mass History of tonsillectomy s/p kidney stones Social History Smoking Status: Current every day smoker tobacco type: e-cigarettes alcohol intake: never substance use type: does not use caffeine: Yes what type of physical activity do you participate in: aerobics and weight training frequency: 5-6 times per week seatbelt use: always do you feel safe at home: Yes additional social history: Single-Works for [employer] ROS Eyes Eyes: Reports systems reviewed and no addt'l complaints, except as documented ENT HEENT: Reports systems reviewed and no addt'l complaints, except as documented Cardiovascular Cardiovascular: Reports systems reviewed and no addt'l complaints, except as documented Respiratory/Chest Respiratory/Chest: Reports systems reviewed and no addt'l complaints, except as documented Gastrointestinal Gastrointestinal: Reports systems reviewed and no addt'l complaints, except as documented Genitourinary Genitourinary: Reports systems reviewed and no addt'l complaints, except as documented Musculoskeletal Musculoskeletal: Reports systems reviewed and no addt'l complaints, except as documented Integumentary Integumentary: Reports systems reviewed and no addt'l complaints, except as documented Neurologic Neurologic: Reports systems reviewed and no addt'l complaints, except as documented Psychiatric Psychiatric: Reports systems reviewed and no addt'l complaints, except as documented Endocrine Endocrinology: Reports systems reviewed and no addt'l complaints, except as documented Hematologic/Lymphatic Hematologic/Lymphatic: Reports systems reviewed and no addt'l complaints, except as documented Allergic/Immunologic Allergic/Immunologic: Reports systems reviewed and no addt'l complaints, except as documented Vital Signs Vital Signs Vital Signs: 01/22/21 09:30 01/22/21 09:35 Temperature 98.1 F Temperature Source Temporal Pulse Rate 68 Respiratory Rate 16 Respiratory Pattern Normal Blood Pressure 106/45 L Blood Pressure Mean 65 Blood Pressure Source Monitor Blood Pressure Position Semi-Fowlers Blood Pressure Location Left Arm Pulse Ox 100 Oxygen Delivery Method Room Air Weight Weight: 154 lb 15.759 oz Body Mass Index (BMI) 32.3 Physical Exam Const alert, oriented x3, no apparent distress, average body habitus, healthy appearing and well nourished HEENT normocephalic and moist oral mucous membranes Head and Scalp: atraumatic Eyes PERRL and EOMs intact bilaterally Neck full ROM Resp normal respiratory effort, no retractions and no use of accessory muscles Cardio regular rate and regular rhythm GI soft to palpation, non-tender and non-distended Extremity normal to inspection and full ROM Skin no rashes or lesions noted Neuro no focal motor deficits and no sensory deficits noted Psych mental status grossly normal, affect normal, speech normal and activity/motor behavior normal Labs Labs Labs: Blood Type A POSITIVE Antibody Screen NEGATIVE Hct 42.8 % (37-47) Hgb 13.8 g/dL (12.0-15.0) Neisseria gonorrhoeae DNA (DIVYA) Negative (Negative) C.trachomatis DNA (PCR) Negative (Negative) Assessment & Plan (1) Chronic pelvic pain in female: PLAN: Patient with severe pelvic pain worse with menses not alleviated with IUD, depo, or scheduled NSAIDS Presents for diagnostic laparoscopy, possible fulguration of endometriosis Again reviewed risks of surgery. All questions answered No changes to medical history ROS negative Consent signed in office
--- NOTE | 2021-01-22 11:14 | PCM.DC ---
Discharge Instructions Diet Discharge Diet: No restrictions Activity Discharge Activity: May Not Drive (While on narcotic pain medication) and May Shower May resume sexual activity in: 1-2 weeks Lifting Restrictions: No lifting greater than 20 pounds until postop visit Dressing / Incision Call your doctor if your incision/area has: Continuous Slow Oozing, Sudden Increased Bleeding, Increased Pain/ Swelling, Increased Redness, Foul Smelling Discharge and Swelling at the incision site Call your doctor if you observe: Fever of 101 or Higher, Inability to urinate, Using more than 1 pad per hour, Shortness of breath, Dizziness, Fainting spells, Chest pain and Uncontrolled pain Remove Dressing in: 1 week Cleanse incision/area with: Soap & Water Follow Up Care Please Follow Up With: Nicole Montalvo MD When: 2 weeks Test Results: Test results from this visit will be discussed in further detail at your follow-up appointment, if applicable. Discharge Plan Admission Primary Reason for Your Visit: Laparoscopy Attending Provider: Nicole Montalvo Primary Care Provider: Angelo Clement Instructions Patient Instructions: Endometriosis Lap Tx Dc Discharge Orders/Prescriptions Prescriptions: New ibuprofen 800 mg tablet 800 mg PO Q8H PRN (Reason: pain) Qty: 30 RF: 1 oxycodone 5 mg capsule 5 mg PO Q6H PRN (Reason: pain) 5 Days Qty: 10 RF: 0 Continued multivitamin Tablet 1 tab PO DAILY RF: 0 Referrals / Follow Up: Angelo Clement DO [Primary Care Provider] - Disposition Disposition (needs filled in before D/C Order can be placed): Home, Self Care
--- NOTE | 2021-01-22 11:17 | PCM.OPRPT ---
Problems Associated Problem List Diagnoses (1) Chronic pelvic pain in female: Report of Operation Date of Procedure: 01/22/21 Pre-Operative Diagnosis: Chronic pelvic pain, suspected endometriosis Post-Operative Diagnosis: Same Surgery/Procedure Performed:: Diagnostic laparoscopy, fulguration of endometriosis Description of Surgical Findings:: Small implants of endometriosis noted anterior to the bladder, inferior to the uterosacral ligaments in the posterior cul-de-sac, and in the left ovarian fossa. 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 She was prepped and draped in the dorsal lithotomy position with yellofin stirrups. A weighted speculum was placed in the posterior aspect of the vagina and the anterior lip of the cervix was grasped with a single-tooth tenaculum. The uterus was sounded and found to be 9 cm. A Zumi uterine manipulator was placed without difficulty and all other instruments were removed from the vagina. Gloves were changed and attention was directed to the abdomen. The umbilicus was grasped with towel clamps. 10cc of 0.25% marcaine was used to anesthetize the umbilicus. A 5mm incision was made at the base of the umbilicus. A veress needle was inserted without difficulty and intra-abdominal placement was confirmed using the water-drop test. The abdomen was insufflated to 15 mmHg and the veress needle was removed. A 5mm optiview trochar was then placed under direct visualization. Initial survey of the abdominal cavity revealed no evidence of trauma. The above findings were noted. Additional 5mm ports were placed in the right and left lower quadrants. A [place] grasper attached to monopolar energy was used to fulgurate all noted areas of endometriosis. The procedure was deemed complete. All instruments were removed from the abdominal cavity. The port sites were closed in a simple interrupted fashion using 3-0 monocryl and sterile dressings were placed. The uterine manipulator was removed. The patient was awakened from anesthesia and taken to the recovery room in stable condition. Complications None apparent Admit VTE Documentation VTE Present on Admission: No VTE Mechan Device Prophylaxis: SCD's VTE Pharm Prophylaxis ordered?: No Procedures Urinary/Genital [id number]: [id number] Laproscopic ablation endometriosis
[2021-01-22] MEDS: Bupivacaine 0.25% 30 ML Vial (12:41)
== END 2021-01-22 15:44 ==
LOC: SDC 08:50 → AC 08:51
PROVIDERS: Anesthesiology; PCP Family Medicine; Visit Provider Obstetrics & Gynecology
PROC: (CPT 49320; principal; 2021-01-22 10:00)
DX: R10.2 Pelvic and perineal pain (principal); G89.29 Other chronic pain; N80.1 Endometriosis of ovary; N80.0 Endometriosis of uterus; N80.8 Other endometriosis; D64.9 Anemia, unspecified; F12.90 Cannabis use, unspecified, uncomplicated; F32.9 Major depressive disorder, single episode, unspecified; F41.9 Anxiety disorder, unspecified; F60.3 Borderline personality disorder; G25.81 Restless legs syndrome; K21.9 Gastro-esophageal reflux disease without esophagitis; K58.9 Irritable bowel syndrome, unspecified; Z86.14 Personal history of Methicillin resistant Staphylococcus aureus infection; Z79.899 Other long term (current) drug therapy
CPT/HCPCS: 00840; 58662; 36415; 81025; 85027; 86850; 86900; 86901; 87426; C9803; J7120; J2405

== ENCOUNTER 2021-01-29 18:35 | Emergency (ER) | payer MEDICAID, SELFPAY ==
[2021-01-29 18:37] VITALS: BP 127/81; PULSE 80; RESP 16; TEMP 36.8; O2SAT 98; BMI 34.0
--- NOTE | 2021-01-29 21:29 | RAD_ITS ---
EXAM: XR CHEST, 2 VIEWS : 1995 CLINICAL INDICATION: Cough TECHNIQUE: Frontal and lateral views of the chest. This report was created using [employer] report generation technology. COMPARISON: None. FINDINGS: LUNGS AND PLEURAL SPACES: Unremarkable. No consolidation or edema. No pneumothorax. No effusion. HEART: Unremarkable. Cardiac silhouette not enlarged. MEDIASTINUM: Central airways and mediastinal contour are unremarkable. BONES/JOINTS: Unremarkable. SOFT TISSUES: Unremarkable. RAD/Chest PA and Lateral IMPRESSION: No radiographic evidence of acute cardiopulmonary disease. at 2242 Reported and signed by: Erasmo Garces MD Electronically Signed: Erasmo Garces MD at 22:41 EDT Tel , Service support ,
--- NOTE | 2021-01-29 21:30 | CT_ITS ---
EXAM: CT ABDOMEN AND PELVIS WITH INTRAVENOUS CONTRAST : 1995 CLINICAL INDICATION: Post op abd pain/fever TECHNIQUE: Helically acquired images were obtained of the abdomen and pelvis with intravenous contrast. This CT exam was performed using one or more of the following dose reduction techniques: automated exposure control, adjustment of the mA and/or kV according to patient size, and/or use of iterative reconstruction technique. This report was created using [employer] report generation technology. CONTRAST: IV 100mL Isovue-370 COMPARISON: 08/03/2020 FINDINGS: LOWER THORAX: Unremarkable. Lung bases are clear. No cardiomegaly. No significant pericardial effusion. ABDOMEN: LIVER: Unremarkable. Homogeneous. No focal mass. GALLBLADDER AND BILE DUCTS: Unremarkable. No calcified gallstones. No gallbladder distention or wall edema. No intra- or extrahepatic biliary ductal dilation. PANCREAS: Unremarkable. No focal cystic or solid mass. SPLEEN: Unremarkable. Normal size without focal cystic or solid mass. ADRENALS: Unremarkable. No nodules. KIDNEYS AND URETERS: Unremarkable. Normal renal size and position. No hydronephrosis. STOMACH AND BOWEL: Unremarkable. No stomach or bowel distention. No focal inflammatory change. PELVIS: APPENDIX: No evidence of acute appendicitis. BLADDER: Unremarkable. REPRODUCTIVE: There is a 1.4 x 1.2 cm low-density structure in the right hemipelvis which may represent an ovarian cyst. ABDOMEN and PELVIS: INTRAPERITONEAL SPACE: Unremarkable. No ascites or other fluid collection. No free air. BONES/JOINTS: Unremarkable. No suspicious lytic or blastic abnormality. SOFT TISSUES: Unremarkable. No discrete abdominal or pelvic wall hernia. VASCULATURE: Unremarkable. Abdominal aorta is non-dilated. LYMPH NODES: Unremarkable. No enlarged lymph nodes. CT/Abdomen/Pelvis W IV Cont ONLY IMPRESSION: Low-density structure in the right hemipelvis which may represent an ovarian cyst. No other acute abnormalities in the abdomen or pelvis. Individualized dose optimization techniques were used for this CT. at 2300 Reported and signed by: Erasmo Garces MD Electronically Signed: Erasmo Garces MD at 22:59 EDT Tel , Service support ,
[2021-01-29] MEDS: Ketorolac 15 MG/ML Vial IV (21:38)
[2021-01-29 21:49] LABS: Absolute Neutrophil Count 7.2 X10^3/uL (2.0-7.7); Basophil# 0.03 X10^3/uL; Basophil% 0.3 % (0-1); Eosinophil# 0.22 X10^3/uL; Eosinophils% 2.1 % (0-5); Hematocrit 40.2 % (37-47); Hemoglobin 12.8 g/dL (12.0-15.0); Lymphocyte % 22.6 % (19-41); Mean Corp Hgb Conc 31.8 g/dL (32-36); Mean Corpuscular Hgb 28.7 pg (27.0-32.0); Mean Corpuscular Volume 90.1 fL (81-99); Mean Platelet Vol. 11.6 fl (6.2-12.0); Monocyte# 0.73 X10^3/uL; Monocyte% 6.9 % (0-10); NRBC Flagged by Analyzer 0 % (0-5); Neutrophil # 7.17 X10^3/uL (2.7-7.7); Neutrophil % 67.4 % (47-70); Platelet Count 220 K/mm3 (150-450); RBC Distribution Width CV 11.9 % (11.6-14.6); RBC Distribution Width SD 39.1 fl (35.1-43.9); Red Blood Count 4.46 M/mm3 (4.2-5.4); White Blood Count 10.6 K/mm3 (4.4-11.0)
[2021-01-29 21:57] LABS: Mucous, Urine 0 SEEN /hpf (<or=2+); Squamous Epithelial Cells - UA 0 SEEN /hpf (5-10)
[2021-01-29 22:04] LABS: Anion Gap 4 (5-15); BUN 14 mg/dL (7-18); BUN/Creat Ratio 16.4 RATIO (10-20); Calcium,Total 9.1 mg/dL (8.5-10.1); Chloride 111 mmol/L (98-107); Creatinine, Serum 0.85 mg/dL (0.55-1.02); EST Glomerular Filtration Rate 85 mL/min (>60); Est Glom Filt Rate - Afr Amer 103 mL/min (>60); Glucose 91 mg/dL (74-106); Potassium 3.7 mmol/L (3.5-5.1); Sodium Level 143 mmol/L (136-145)
[2021-01-29 22:05] LABS: Color, Urine Yellow (Yellow); Glucose, Dipstick Normal (Normal); Ketone-Dipstick Negative (Negative); Leukocyte Esterase-Dipstick Negative /ul (Negative); Nitrite-Dipstick Negative (Negative); Occult Blood-Urine 250 /ul (Negative); Protein-Dipstick 15 mg/dl (Negative); Specific Gravity, Urine 1.015 (1.002-1.030); Urine Bilirubin Dipstick Negative (Negative); Urine Clarity Sl. Cloudy (Clear); Urine Urobilinogen Normal (Normal); Urine pH 6.5 (5.0 - 8.0)
--- NOTE | 2021-01-29 22:07 | EX.ED.DYSGE1 ---
HPI History of Present Illness Chief Complaint: Wound Check Narrative Narrative: Patient presenting for evaluation secondary to abdominal pain and fever. Patient is 1 week postop from a exploratory laparoscopy searching for endometriosis that did result in some ablation of tissue. Patient states that over the course of about the last 24 hours she has been dealing with fevers. T-max has been 100.2. Is been associated with some abdominal pain. Patient reports that she removed her dressing yesterday, and saw some redness around her umbilicus. She reports that that mainly is where her abdominal pain is. Patient denies that she has any cough or shortness of breath. She denies nausea or vomiting. Denies any diarrhea or dysuria. Review of systems otherwise negative. [facility] Medical History Acute recurrent tonsillitis, unspecified Alcohol use Anemia Anxiety Bilateral macrostomia Borderline personality disorder Breast mass, left Closed TBI (traumatic brain injury) Depression Diffuse cystic mastopathy Easy bruising Frequent headaches Gastric reflux History of chicken pox History of MRSA infection History of pneumonia History of steroid therapy IBS (irritable bowel syndrome) Injury of back Injury of head and neck Kidney stones Marijuana use Mass of right breast Migraine headache Moderate malnutrition MTHFR (methylene THF reductase) deficiency and homocystinuria Restless legs Sinus problem Wears glasses Home Medications multivitamin 1 tab PO DAILY 03/07/20 [History Last Taken Unknown] oxycodone 5 mg PO Q6H PRN 5 Days #10 cap 01/22/21 [Rx Last Taken Unknown] ibuprofen 800 mg tablet 800 mg PO Q8H PRN #30 tab 01/28/21 [Rx Last Taken Unknown] Allergy/AdvReac Type Severity Reaction Status Date / Time latex Allergy Hives/throat Verified 01/29/21 18:37 swelling lorazepam [From Ativan] Allergy Itching/thong Verified 01/29/21 18:37 lucinations Sulfa (Sulfonamide Allergy Hives/breathing Verified 01/29/21 18:37 Antibiotics) difficulty Family History Mother Anemia History of blood clots History of blood transfusion Hormone disorder Arthritis Father Asthma Aunt Breast cancer Cervical cancer Ovarian cancer Grandfather Bleeding disorder History of angina Melanoma Diabetes Heart disease Hypertension High cholesterol CVA (cerebral vascular accident) Cancer Grandmother Arthritis Diabetes Osteoporosis Thyroid disorder Surgical History History of bilateral breast reduction surgery History of excision of lesion History of excision of mass History of laparoscopy History of tonsillectomy s/p kidney stones Social History Smoking Status: Current every day smoker tobacco type: e-cigarettes alcohol intake: never substance use type: does not use caffeine: Yes what type of physical activity do you participate in: aerobics and weight training frequency: 5-6 times per week seatbelt use: always do you feel safe at home: Yes additional social history: Single-Works for [employer] ROS ROS ED Constitutional Constitutional ED: Reports fever(s) ENT ENT ED: Denies sore throat Cardiovascular Cardiovascular: Denies chest pain Respiratory/Chest Respiratory/Chest: Denies cough or dyspnea Gastrointestinal Gastrointestinal: Reports abdominal pain Genitourinary Genitourinary ED: Denies dysuria, hematuria or urinary frequency Musculoskeletal Musculoskeletal: Denies myalgias Integumentary Denies rash Neurologic Neurologic: Denies paresthesias or weakness Psychiatric Psychiatric: Denies depression Endocrine Endocrinology: Denies polyuria Hematologic/Lymphatic Hematologic/Lymphatic: Denies easy bleeding or easy bruising Allergic/Immunologic Allergic/Immunologic ED: Denies urticaria EXAM Physical Exam Const Vital Signs: 01/29/21 18:37 Temperature 98.2 F Temperature Source Oral Pulse Rate 80 Respiratory Rate 16 Blood Pressure 127/81 H Blood Pressure Mean 96 Pulse Ox 98 Oxygen Delivery Method Room Air Positive well nourished and well developed General Appearance ED: well developed and NAD HEENT normocephalic and atraumatic Eyes EOMs intact bilaterally General Eye ED: Negative for pale conjunctiva or scleral icterus Neck no lymphadenopathy and supple Resp normal respiratory effort and clear to auscultation bilaterally Cardio regular rate, regular rhythm and peripheral pulses 2+ throughout Rate: other Other Details: 2 out of 6 systolic murmur GI no masses GI Narrative: Surgical incisions are well-healing. There is some bruising noted inferior to the patient's umbilicus. There is mild surrounding erythematous rash that appears more like urticaria rather than cellulitis, there is no induration or fluctuance. Palpation: soft; Negative for guarding, rigid or rebound tenderness present Back/Spine no CVA tenderness Extremity full ROM General Extremety ED: Negative for edema General Extremity: Negative for edema Neuro moves all extremities and no sensory deficits noted Sensorium / Orientation: alert, oriented to person, oriented to place and oriented to time Motor Exam: strength 5/5 throughout Psych mental status grossly normal Skin Rashes: no rashes MDM MDM MDM Narrative Medical decision making narrative: Patient presented secondary to a postop fever. IV was established laboratory studies were obtained. Chest x-ray by my personal review was negative for acute pathology. CT abdomen and pelvis shows no inflammatory process. CBC demonstrates no leukocytosis or shift chemistry unremarkable urinalysis was negative for infection. Patient's been afebrile in the emergency department, reevaluation at midnight she is sleeping comfortably. I do not believe that she requires admission or further observation. She was given reassurance. She was recommended expectant management measures and she was discharged in stable condition. Lab Data Labs: Laboratory Results - last 24 hr 01/29/21 01/29/21 01/29/21 21:40 21:40 21:50 WBC 10.6 RBC 4.46 Hgb 12.8 Hct 40.2 MCV 90.1 MCH 28.7 MCHC 31.8 L RDW Std Deviation 39.1 RDW Coeff of Benji 11.9 Plt Count 220 MPV 11.6 Immature Gran % (Auto) 0.700 Neut % (Auto) 67.4 Lymph % (Auto) 22.6 [place] % (Auto) 6.9 Eos % (Auto) 2.1 Baso % (Auto) 0.3 Absolute Neuts (auto) 7.2 Absolute Lymphs (auto) 2.40 Nucleated RBC % 0 Sodium 143 Potassium 3.7 Chloride 111 H Carbon Dioxide 28.0 Anion Gap 4 L BUN 14 Creatinine 0.85 Estim Creat Clear Calc 111.90 Est GFR (MDRD) Af Amer 103 Est GFR (MDRD) Non-Af 85 BUN/Creatinine Ratio 16.4 Glucose 91 Calcium 9.1 Urine Color Yellow Urine Clarity Sl. Cloudy Urine pH 6.5 Ur Specific [place] 1.015 Urine Protein 15 H Urine Glucose (UA) Normal Urine Ketones Negative Urine Occult Blood 250 H Urine Nitrite Negative Urine Bilirubin Negative Urine Urobilinogen Normal Ur Leukocyte Esterase Negative Urine RBC 10-25 SEEN Urine WBC 0-5 SEEN Ur Squamous Epith Cells 0 SEEN Urine Bacteria 1+ Urine Mucus 0 SEEN Radiography Diagnostic Testing: Radiology Impression Chest X-Ray 01/29/21 21:29 IMPRESSION: No radiographic evidence of acute cardiopulmonary disease. at 2242 Reported and signed by: Erasmo Garces MD Electronically Signed: Erasmo Garces MD at 22:41 EDT Tel , Service support , Abdomen/Pelvis CT 01/29/21 21:30 IMPRESSION: Low-density structure in the right hemipelvis which may represent an ovarian cyst. No other acute abnormalities in the abdomen or pelvis. Individualized dose optimization techniques were used for this CT. at 2300 Reported and signed by: Erasmo Garces MD Electronically Signed: Erasmo Garces MD at 22:59 EDT Tel , Service support , Discharge Plan Triage Chief Complaint: Wound Check ED Provider: Jai Mims Dx/Rx/DC Orders Clinical Impression: Fever postop Instructions: ED Post Op Wound Check, General Prescriptions: No Action multivitamin Tablet 1 tab PO DAILY RF: 0 oxycodone 5 mg capsule 5 mg PO Q6H PRN (Reason: pain) 5 Days Qty: 10 RF: 0 ibuprofen 800 mg tablet 800 mg PO Q8H PRN (Reason: pain) Qty: 30 RF: 1 Primary Care Provider: Angelo Clement Referrals: Nicole Montalvo MD [STAFF PHYSICIAN] - As Needed Angelo Clement DO [Primary Care Provider] - Disposition Disposition: Home, Self Care
[2021-01-29 22:16] LABS: Bacteria 1+ /hpf (None Seen); Red Blood Cells-Urine 10-25 SEEN /hpf (0-5); White Blood Cells 0-5 SEEN /hpf (0-5)
== END 2021-01-30 00:26 | disposition home or self-care (01) ==
PROVIDERS: Emergency Provider Emergency Medicine; PCP Family Medicine
DX: R50.82 Postprocedural fever (principal); D64.9 Anemia, unspecified; F32.9 Major depressive disorder, single episode, unspecified; F41.9 Anxiety disorder, unspecified; F60.3 Borderline personality disorder; G43.909 Migraine, unspecified, not intractable, without status migrainosus; K21.9 Gastro-esophageal reflux disease without esophagitis; K58.9 Irritable bowel syndrome, unspecified; Z79.899 Other long term (current) drug therapy; Z86.14 Personal history of Methicillin resistant Staphylococcus aureus infection; Q18.4 Macrostomia; F17.210 Nicotine dependence, cigarettes, uncomplicated
CPT/HCPCS: 71046; 74177; 80048; 81001; 85025; 99282; Q9967; A4216

== ENCOUNTER → 2021-05-06 12:40 | Outpatient (CLI) | payer MEDICAID, SELFPAY | PROVIDERS: PCP Family Medicine; Visit Provider Family Medicine | DX: Z20.828 Contact with and (suspected) exposure to other viral communicable diseases (principal) | CPT/HCPCS: 87635; U0005; U0003 ==

== ENCOUNTER → 2021-10-14 | Outpatient (CLI) | payer MEDICAID, SELFPAY ==
[2021-10-16 22:07] LABS: Chlamydia By Nucleic Acid AMP Negative (Negative)
[2021-10-16 22:53] LABS: Gonococcus By Nucleic Acid AMP Negative (Negative)
== END | disposition home or self-care (01) ==
LOC: LABSPEC 16:36
PROVIDERS: PCP Family Medicine; Referring Provider Obstetrics & Gynecology; Visit Provider Obstetrics & Gynecology
DX: Z11.3 Encounter for screening for infections with a predominantly sexual mode of transmission (principal)
CPT/HCPCS: 87491; 87591

== ENCOUNTER → 2024-05-17 | Outpatient (CLI) | payer SELFPAY ==
--- NOTE | 2024-05-17 16:16 | RAD_ITS ---
STUDY: X-RAY - RIGHT ANKLE REASON FOR EXAM: Female, 28 years old. PAIN, FALL, R/O FRACTURE TECHNIQUE: 3 views of the right ankle. COMPARISON: None. FINDINGS: Normal visualized distal tibia and fibula. Normal medial and lateral malleoli. Normal tibiotalar articulation and ankle mortise. Normal visualized talus and calcaneus. The visualized subtalar, talonavicular, calcaneocuboid and tarsal articulations are normal. There is no demonstrated fracture. The soft tissue structures are unremarkable. RAD/Ankle min 3 Views IMPRESSION: Normal x-ray examination of the right ankle. Electronically Signed: Adonis Huffman MD at 15:05 EST ,
== END | disposition home or self-care (01) ==
LOC: MTRAD 16:13
PROVIDERS: PCP Family Medicine; Referring Provider Family Medicine; Visit Provider Family Medicine
DX: M25.571 Pain in right ankle and joints of right foot (principal)
CPT/HCPCS: 73610